=== PATIENT | male | born 1935 | race Caucasian/White ===

== ENCOUNTER 2018-08-18 17:46 | Emergency (ER) | payer OTHER ==
[~2018-08-18] VITALS: Ht 182.9 cm; Wt 83.9 kg
[~2018-08-18 17:46] MED LIST: CEFADROXIL500 MG PO; COZAAR25 MG; SYNTHROID200 MCG; VENLAFAXINE HCL75 MG
== END 2018-08-18 23:53 | disposition home or self-care (01) ==
LOC: ER 17:46
DX: K58.9 Irritable bowel syndrome, unspecified (principal); K80.20 Calculus of gallbladder without cholecystitis without obstruction; K57.90 Diverticulosis of intestine, part unspecified, without perforation or abscess without bleeding

== ENCOUNTER 2020-05-28 13:38 | Emergency (ER) | payer OTHER ==
[~2020-05-28] VITALS: Ht 182.9 cm; Wt 95.3 kg
[2020-05-28] MEDS ORDERED: CALCIUM500 M2 (13:54)
[2020-05-28] MEDS ORDERED: AMLODIPINE-OLM1 EACH (13:54)
[2020-05-28] MEDS ORDERED: PEPCID AC20 MG (13:54)
[2020-05-28] MEDS ORDERED: DERMACINRX5000 UNIT (13:55)
[2020-05-28] MEDS ORDERED: ATIVAN1 M1 (13:55)
[2020-05-28] MEDS ORDERED: CENTRUM SILVER1 EAC1 (13:55)
[2020-05-28] MEDS ORDERED: STOOL SOFTENER250 MG (13:56)
[2020-05-28] MEDS ORDERED: BIOFLEX TABLET1 EACH (13:57)
== END 2020-05-28 18:08 | disposition home or self-care (01) ==
LOC: ER 13:38
DX: S01.122A Laceration with foreign body of left eyelid and periocular area, initial encounter (principal); W01.118A Fall on same level from slipping, tripping and stumbling with subsequent striking against other sharp object, initial encounter; Y93.89 Activity, other specified; Y92.128 Other place in nursing home as the place of occurrence of the external cause; Y99.8 Other external cause status

== ENCOUNTER 2024-06-15 17:57 | Inpatient (IN) | payer OTHER ==
[~2024-06-15] VITALS: Ht 170.2 cm; Wt 90.7 kg
[~2024-06-15 17:57] MED LIST changes: +AMLODIPINE-OLM1 EACH; +ATIVAN1 M1; +BIOFLEX TABLET1 EACH; +CALCIUM500 M2; +CENTRUM SILVER1 EAC1; +DERMACINRX5000 UNIT; +PEPCID AC20 MG; +STOOL SOFTENER250 MG
--- NOTE | 2024-06-15 18:14 | NUR ---
SE RECIBE PTE ALERTA Y ORIENTADO X3 EN AMBULANCIA. REFIERE VENIR POR BKP, SOB Y TOS SECA. SE OBSERVA CANULA A 3LT/MIN DESDE AMBULANCIA. SE MIDE SV Y SE UBICA PTE EN UNIDAD DE CRITICO EN CAMA #3 POR ORDEN DE DRA BRAGA
[2024-06-15] MEDS ORDERED: LEVALBUTEROL HCL 1.25 MG/3 ML SOLUTION IH ONE (18:29)
[2024-06-15] MEDS ORDERED: IPRATROPIUM BROMIDE 0.5 MG/2.5 ML AMPUL.NEB IH ONE (18:29)
[2024-06-15] MEDS ORDERED: 0.9 % SODIUM CHLORIDE 1,000 ML IV ONE (18:45)
[2024-06-15] MEDS ORDERED: IPRATROPIUM BROMIDE 0.5 MG/2.5 ML AMPUL.NEB IH SCH (18:45)
[2024-06-15] MEDS ORDERED: FAMOtidine 10 MG/ML (4ML VIAL) IV ONE (18:45)
[2024-06-15] MEDS ORDERED: LEVALBUTEROL HCL 1.25 MG/3 ML SOLUTION IH SCH (18:45)
[2024-06-15] MEDS ORDERED: PIPERACILLIN/TAZOBACTAM SODIUM 3.375 GM VIAL IV ONE ×2 (18:45→20:01)
[2024-06-15] MEDS ORDERED: METHYLPREDNISOLONE SOD SUCC 40 MG VIAL IM ONE (18:45)
[2024-06-15 19:28] LABS: HEMATOCRIT 34.6 % (39.0-48.0); HEMOGLOBIN 11.5 g/dL (13-16.00); MEAN CELL VOLUME 91.3 fL (80.0-100.00); MEAN CORPUSCULAR HEMOGLOBIN 30.4 pg (27.00-32.0); MEAN CORPUSCULAR HGB CONC 33.3 g/dl (32.0-36.0); PLATELET COUNT 195 K/uL (150-450); RED BLOOD COUNT 3.79 M/uL (4.00-6.00); RED CELL DISTRIBUTION WIDTH 15.4 % (11.5-14.5)
[2024-06-15 19:47] LABS: PROTHROMBIN TIME 10.9 SECONDS (9.0-11.5)
[2024-06-15 19:53] LABS: ALBUMIN 2.8 gm/dL (3.4-5.0); BILIRUBIN TOTAL 0.19 mg/dL (0.3-1.2); CALCIUM 8.6 mg/dL (8.5-10.1); CREATININE SERUM 2.31 mg/dL (0.70-1.30); GFR 26.83; GLOBULINA 4.4 G/DL (2.4-3.5); POTASSIUM 4.37 mEq/L (3.5-5.1); TOTAL PROTEIN 7.2 gm/dL (6.4-8.2)
[2024-06-15 19:54] LABS: C-REACTIVE PROTEIN 2.2 MG/DL (0.00-0.29)
[2024-06-15] MEDS ORDERED: METHYLPREDNISOLONE SOD SUCC 40 MG VIAL ONE (20:01)
[2024-06-15] MEDS ORDERED: FAMOTIDINE/PF 20 MG/2 ML VIAL ONE (20:01)
[2024-06-15 20:24] LABS: ABG PH 7.399 (7.35-7.45); ABG pCO2 37.3 mmHg (35-45)
[2024-06-15 20:25] LABS: BASE EXCESS -1.8 mmol/l; BICARBONATE 22.5 mmol/l (23-25); SaO2 93.9 %; Tco2 23.7 mmol/l; allen test SATISFACTORY; o2 21 %; puncture site RADIAL RIGHT
--- NOTE | 2024-06-15 20:38 | NUR ---
PTE CON DIFICULTAD RESPIRATORIA,ALERTA Y ORIENTADO .SE CONECTA A MONITOR CARDIACO.SE CANALIZA EN BRAZO TEQUILA JAKUB DE EDEMA Y HEMATOMA.PTE SE LE JOSS MUESTRAS DE LABORATORIO Y SE LE ADMINSITRA MEDICAMENTO TAMY ORDEN MEDICA.SE LE COLOCA CANULA NASAL A 3 LITROS. SE Y SE LE COLOCA REDDY.SE MANTIENE BAJO OBSERVACION
[2024-06-15 20:45] LABS: ERYTHROCYTE SEDIMENTATION RATE 98 mm/hr
[2024-06-15 20:58] LABS: PH,URINE 5.5 (5.0-8.0); URINE APPEARANCE Clear; URINE BILIRRUBIN Negative (NEGATIVE); URINE BLOOD Moderate; URINE COLOR Yellow; URINE GLUCOSE Negative (NEGATIVE); URINE KETONE Negative (NEGATIVE); URINE LEUKOCYTE Moderate; URINE NITRATE Negative; URINE UROBILINOGEN 0.2 E.U./dl
[2024-06-15 21:06] LABS: URINE EPITHELIAL CELLS 22.1 uL (0.0-38.8); URINE RBC 150.2 uL (0.0-20.8); URINE WBC 290.5 uL (0.0-23.2)
[2024-06-15 21:16] LABS: URINE CAST 0.44 uL (0.0-1.40); URINE PROTEIN 100 (NEGATIVE)
[2024-06-15] MEDS ORDERED: CLONAZEPAM 0.5 MG TABLET PO ONE (22:15)
--- NOTE | 2024-06-16 00:29 | NUR ---
PTE ALERTA EN CAMA CON BARANDAS ELEVADAS,EN COMPANIA DE FAMILIAR.SIN DIFICULTAD AL MOMENTO CON CANULA NASAL @ 3LTS,PENDIENTE A EVALUACION DE MEDICINA INTERNA.
[2024-06-16] MEDS ORDERED: ACETAMINOPHEN 325 MG TABLET PO PRN (01:15)
[2024-06-16] MEDS ORDERED: 0.9 % SODIUM CHLORIDE 1,000 ML IV SCH (01:15)
[2024-06-16] MEDS ORDERED: ONDANSETRON HCL 4 MG in 0.9 % SODIUM CHLORIDE 50 ML IV PRN (01:15)
[2024-06-16 08:08] VITALS: BP 133/75; O2SAT 95
[2024-06-16] MEDS ORDERED: ENOXAPARIN SODIUM 30 MG/0.3 ML SYRINGE SUBCUTANEO SCH (09:00)
[2024-06-16] MEDS ORDERED: PANTOPRAZOLE SODIUM 40 MG/VIAL VIAL IV SCH (09:00)
[2024-06-16] MEDS ORDERED: MEROPENEM 500 MG/VIAL VIAL IV SCH (09:00)
[2024-06-16] MEDS ORDERED: PANTOPRAZOLE SODIUM 4 MG/ML REDILUIDO IV SCH (09:00)
[2024-06-16] MEDS ORDERED: levoFLOXacin IN DEXTROSE 5 % 150 ML IV SCH (16:00)
[2024-06-16] MEDS ORDERED: CEFEPIME HCL 1,000 MG VIAL IV SCH (17:00)
[2024-06-16 18:28] VITALS: BP 174/94; O2SAT 97
[2024-06-17 00:47] VITALS: BP 147/82
[2024-06-17 08:34] LABS: ALBUMIN 2.5 gm/dL (3.4-5.0); BILIRUBIN TOTAL 0.25 mg/dL (0.3-1.2); CALCIUM 8.4 mg/dL (8.5-10.1); CREATININE SERUM 2.14 mg/dL (0.70-1.30); GFR 29.31; GLOBULINA 4.2 G/DL (2.4-3.5); MAGNESIUM 2.2 mg/dL (1.8-2.4); POTASSIUM 4.71 mEq/L (3.5-5.1); TOTAL PROTEIN 6.7 gm/dL (6.4-8.2)
[2024-06-17 08:48] LABS: HEMATOCRIT 32.7 % (39.0-48.0); MEAN CELL VOLUME 91.4 fL (80.0-100.00); MEAN CORPUSCULAR HEMOGLOBIN 30.7 pg (27.00-32.0); MEAN CORPUSCULAR HGB CONC 33.6 g/dl (32.0-36.0); PLATELET COUNT 197 K/uL (150-450); RED BLOOD COUNT 3.58 M/uL (4.00-6.00); RED CELL DISTRIBUTION WIDTH 14.8 % (11.5-14.5)
[2024-06-17 09:09] LABS: C-REACTIVE PROTEIN 1.34 MG/DL (0.00-0.29); PROSTATIC SPECIFIC ANTIGEN 10.6 NG/ML (0.010-4.00)
[2024-06-17 09:15] VITALS: BP 179/87; O2SAT 96
[2024-06-17 16:55] VITALS: BP 182/88; O2SAT 96
[2024-06-18 00:38] VITALS: BP 180/80
[2024-06-18 07:59] LABS: ALBUMIN 2.4 gm/dL (3.4-5.0); BILIRUBIN TOTAL 0.38 mg/dL (0.3-1.2); CALCIUM 8.1 mg/dL (8.5-10.1); CREATININE SERUM 2.15 mg/dL (0.70-1.30); GFR 29.15; POTASSIUM 4.17 mEq/L (3.5-5.1); TOTAL PROTEIN 6.4 gm/dL (6.4-8.2)
[2024-06-18 09:05] VITALS: BP 173/83; O2SAT 94
[2024-06-18] MEDS ORDERED: hydrALAZINE HCL 20 MG VIAL IV PRN (11:00)
[2024-06-18] MEDS ORDERED: NIFEDIPINE 30 MG TAB.SA.OSM PO NR (12:00)
[2024-06-18 16:44] VITALS: BP 179/92; O2SAT 98
[2024-06-19 01:48] VITALS: BP 164/81
[2024-06-19 06:57] LABS: ALBUMIN 2.4 gm/dL (3.4-5.0); BILIRUBIN TOTAL 0.38 mg/dL (0.3-1.2); CREATININE SERUM 1.8 mg/dL (0.70-1.30); GFR 35.79; GLOBULINA 3.7 G/DL (2.4-3.5); POTASSIUM 4.14 mEq/L (3.5-5.1); TOTAL PROTEIN 6.1 gm/dL (6.4-8.2)
[2024-06-19] MEDS ORDERED: NIFEDIPINE 30 MG TAB.SA.OSM PO SCH (09:00)
[2024-06-19] MEDS ORDERED: levoFLOXacin 750 MG TABLET PO SCH (09:00)
[2024-06-19 09:23] VITALS: BP 118/60; O2SAT 97
[2024-06-19] MEDS ORDERED: CEFEPIME HCL 1,000 MG VIAL IV SCH (17:00)
[2024-06-19] MEDS ORDERED: MUPIROCIN 22 GM OINT..GM TUBE NASAL SCH (17:00)
[2024-06-19 19:01] VITALS: BP 158/85; O2SAT 97
[2024-06-20 00:48] VITALS: BP 156/80; O2SAT 98
[2024-06-20 06:46] LABS: HEMATOCRIT 33.7 % (39.0-48.0); HEMOGLOBIN 11.6 g/dL (13-16.00); MEAN CELL VOLUME 89.2 fL (80.0-100.00); MEAN CORPUSCULAR HEMOGLOBIN 30.8 pg (27.00-32.0); MEAN CORPUSCULAR HGB CONC 34.6 g/dl (32.0-36.0); PLATELET COUNT 210 K/uL (150-450); RED BLOOD COUNT 3.77 M/uL (4.00-6.00)
[2024-06-20 07:30] LABS: ALBUMIN 2.3 gm/dL (3.4-5.0); BILIRUBIN TOTAL 0.39 mg/dL (0.3-1.2); CALCIUM 8.7 mg/dL (8.5-10.1); CREATININE SERUM 1.79 mg/dL (0.70-1.30); GFR 36.02; GLOBULINA 3.9 G/DL (2.4-3.5); MAGNESIUM 1.9 mg/dL (1.8-2.4); PHOSPHOROUS 2.8 mg/dL (2.5-4.9); POTASSIUM 4.33 mEq/L (3.5-5.1); TOTAL PROTEIN 6.2 gm/dL (6.4-8.2)
[2024-06-20 08:33] VITALS: BP 153/83
[2024-06-20] MEDS ORDERED: CHLORHEXIDINE GLUCONATE 120 ML BOTTLE TOP SCH (09:00)
[2024-06-20] MEDS ORDERED: PANTOPRAZOLE SODIUM 40 MG TABLET.DR PO SCH (09:00)
[2024-06-20] MEDS ORDERED: CLOTRIMAZOLE 10 MG TROCHE MM SCH (13:00)
[2024-06-20 17:57] VITALS: BP 138/73
[2024-06-20 20:54] LABS: ALBUMIN 2.3 gm/dL (3.4-5.0); BILIRUBIN TOTAL 0.36 mg/dL (0.3-1.2); CALCIUM 8.5 mg/dL (8.5-10.1); GFR 31.69; GLOBULINA 3.9 G/DL (2.4-3.5); POTASSIUM 4.2 mEq/L (3.5-5.1); TOTAL PROTEIN 6.2 gm/dL (6.4-8.2)
[2024-06-21 02:56] VITALS: BP 126/70
[2024-06-21 08:31] VITALS: BP 160/77
[2024-06-21] MEDS ORDERED: hydrALAZINE HCL 25 MG TABLET PO SCH (17:00)
[2024-06-21] MEDS ORDERED: BISMUTH SUBSALICYLATE 524 MG/30 ML BLIST.PACK PO STA (17:22)
[2024-06-21 17:40] VITALS: BP 140/70; O2SAT 98
[2024-06-22 02:28] VITALS: BP 158/77; O2SAT 99
[2024-06-22 06:41] LABS: ALBUMIN 2.3 gm/dL (3.4-5.0); BILIRUBIN TOTAL 0.38 mg/dL (0.3-1.2); CALCIUM 8.4 mg/dL (8.5-10.1); CREATININE SERUM 1.86 mg/dL (0.70-1.30); GFR 34.46; GLOBULINA 3.7 G/DL (2.4-3.5); POTASSIUM 3.91 mEq/L (3.5-5.1)
[2024-06-22 08:34] VITALS: BP 150/74
[2024-06-22 15:32] LABS: AMYLASE 34 U/L (25-115); LIPASE 31 U/L (13-75)
[2024-06-22] MEDS ORDERED: PIPERACILLIN/TAZOBACTAM SODIUM 2.25 GM in 0.9 % SODIUM CHLORIDE 50 ML IV SCH (18:00)
[2024-06-22 21:28] VITALS: BP 140/64; O2SAT 98
[2024-06-23 01:46] VITALS: BP 172/77
[2024-06-23 09:17] VITALS: BP 148/63; O2SAT 98
[2024-06-23 17:55] VITALS: BP 137/72; O2SAT 98
[2024-06-24 02:28] VITALS: BP 160/78
[2024-06-24 08:23] VITALS: BP 164/72
== END 2024-06-24 12:52 | disposition home or self-care (01) | DRG 683 ==
LOC: ER 17:57 → MEDI 06-16 01:08 → MEDJ 06-19 16:04 → O/R 06-22 10:50 → MEDJ 06-22 10:52
PROVIDERS: General Practice; Internal Medicine; Internal Medicine Infectious Disease; ADMIT Internal Medicine; ATTEND Internal Medicine
PROC: BW24ZZZ Computerized Tomography (CT Scan) of Chest and Abdomen (ICD-10-PCS; principal; 2024-06-16)
PROC: BW40ZZZ Ultrasonography of Abdomen (ICD-10-PCS; 2024-06-21)
DX: N17.9 Acute kidney failure, unspecified (principal); K80.10 Calculus of gallbladder with chronic cholecystitis without obstruction; N39.0 Urinary tract infection, site not specified; I10 Essential (primary) hypertension; J40 Bronchitis, not specified as acute or chronic; E03.9 Hypothyroidism, unspecified; E78.5 Hyperlipidemia, unspecified; F03.A0 Unspecified dementia, mild, without behavioral disturbance, psychotic disturbance, mood disturbance, and anxiety